=== PATIENT | female | born 1965 | race Caucasian/White ===

== ENCOUNTER → 2024-05-09 14:38 | Outpatient (REF) | payer OTHER, SELFPAY | LOC: WDC 14:38 | PROVIDERS: ATTENDING PHYSICIAN Nurse Practitioner Primary Care | DX: R00.2 Palpitations (principal); Z12.31 Encounter for screening mammogram for malignant neoplasm of breast | CPT/HCPCS: 77063; 77067; 93005 ==

== ENCOUNTER 2025-05-05 08:18 | Emergency (ER) | payer OTHER, SELFPAY ==
[2025-05-05 08:18] VITALS: BMI 24.4
[2025-05-05 08:24] VITALS: BP 140/73
--- NOTE | 2025-05-05 09:13 | ED.GENMED ---
History of Present Illness
<TANA Riggins - Last Filed: 05/05/25 14:51>
General
Chief Complaint: Chest Pain
Source: patient
Exam Limitations: none
Time Seen by Provider: 05/05/25 09:00
Nursing documentation reviewed up to this point in time: agreed with
History of Present Illness
History of Present Illness:
Patient is a 59-year-old female with past medical history of hyperlipidemia recently started statins this past weekend presents for evaluation. She started on Saturday 2 days ago with constant pressure in her back that radiates to her chest. She
reports this is not a pain but definitely feels like a pressure and is persistent/constant. She denies any injury. This does not feel like it is muscular to her. She has not taken anything for discomfort. She denies any recent cough or fever or
chills. She denies any abdominal pain nausea vomiting.
Patient reports father with significant cardiac issues
Patient is a non-smoker no oral estrogens no history of DVT PE. No clotting disorder.
Past History
<TANA Riggins - Last Filed: 05/05/25 14:51>
Past History
ED Past Medical History: None
ED Past Surgical History: None
Social History
Tobacco: Non-smoker
Alcohol: None
Drug: None
Family History
Family History: Negative Early CAD
Phy Exam
<TANA Riggins - Last Filed: 05/05/25 14:51>
General Physical Exam
General Presentation: no apparent distress
General age: appears stated age
General Skin: warm and dry
General Habitus: normal
General Mental: alert
General Hydration: appears well hydrated
Cardiovascular Exam
Cardiovascular Exam: regular rate/rhythm, no murmur and normal peripheral pulses
Pulmonary Exam
Pulmonary Exam: lungs clear and no respiratory distress
Neurological Exam
Neurological Exam: alert and oriented x3
Musculoskeletal Exam
Musculoskeletal Exam: full ROM
Skin Exam
Skin Exam: normal color and warm/dry
Psychiatric Exam
Psychiatric Exam: normal mood/affect
Scores
<TANA Riggins - Last Filed: 05/05/25 14:51>
Heart Score for Chest Pain Patients
STEMI patient?: Not applicable
Course
<TANA Riggins - Last Filed: 05/05/25 14:51>
Orders/Labs/Results
Orders:
Orders
05/05/25 08:27
Electrocardiogram (*1) Urgent
Reason for Study: Chest Pain
EKG- Treatment ONCE
05/05/25 09:11
IV Insert/Care/Rem.- Treatment PRN
0.9% Sodium Chloride 1000 ml [Nss] 1,000 ml IV BOLUS
05/05/25 09:12
CT Chest Angio W/wo Iv Contras Urgent
Comment:
Reason For Exam: back pain radiating to chest mild SOB
Cardiac Monitoring- Treatment ONCE
EKG- Treatment ONCE
05/05/25 09:23
Complete Blood Count/With Diff Urgent
Comprehensive Metabolic Panel Urgent
Lipase Urgent
Troponin I Urgent
05/05/25 10:41
US Abdomen Complete/Upper Urgent
Comment:
Reason For Exam: back pain chest pain + stones on ct
05/05/25 12:55
Urinalysis Reflex To Culture Urgent
Date Specimen was Collected: 05/05/25
Time Specimen was Collected: 12:53
Urine Microscopic Reflex Cult Urgent
Urine Culture Urgent
[facility] Source: U
Specimen Description:
Date Specimen was Collected: 05/05/25
Time Specimen was Collected: 12:53
05/05/25 13:23
Electrocardiogram (*1) Urgent
Reason for Study: Chest Pain
EKG- Treatment ONCE
05/05/25 13:30
Ketorolac [Toradol] 15 mg IV NOW STA
05/05/25 13:31
Troponin I Urgent
Abnormal Lab Results
05/05/25 05/05/25
09:23 12:55
WBC 3.8 L 10^3/uL
(4.8-10.8)
Absolute Lymphs (auto) 1.1 L 10^3/uL
(1.2-3.4)
Leukocyte Esterase Rfl 1+ A
(Negative)
Urine Bacteria (Reflex) Few A
(Negative)
Urine Albumin (Reflex) 1+ A
(Neg - Trace)
05/05/25 09:23
05/05/25 09:23
Vital Signs
Initial and Last Documented VS:
Initial Vital Signs
Temp Pulse Resp BP Pulse Ox
98.3 F 73 16 140/73 99
05/05/25 08:24 05/05/25 08:24 05/05/25 08:24 05/05/25 08:24 05/05/25 08:24
Last Documented Vital Signs
Temp Pulse Resp BP Pulse Ox
98.3 F 55 22 93/56 99
05/05/25 08:24 05/05/25 14:33 05/05/25 14:33 05/05/25 14:33 05/05/25 11:00
Academic Support Coordinator consulted with Physician
Academic Support Coordinator consulted with physician?: Yes
Name of Physician Consulted: Fernando
<Lopez King MD - Last Filed: 05/05/25 14:42>
Orders/Labs/Results
Orders:
Orders
05/05/25 08:27
Electrocardiogram (*1) Urgent
Reason for Study: Chest Pain
EKG- Treatment ONCE
05/05/25 09:11
IV Insert/Care/Rem.- Treatment PRN
0.9% Sodium Chloride 1000 ml [Nss] 1,000 ml IV BOLUS
05/05/25 09:12
CT Chest Angio W/wo Iv Contras Urgent
Comment:
Reason For Exam: back pain radiating to chest mild SOB
Cardiac Monitoring- Treatment ONCE
EKG- Treatment ONCE
05/05/25 09:23
Complete Blood Count/With Diff Urgent
Comprehensive Metabolic Panel Urgent
Lipase Urgent
Troponin I Urgent
05/05/25 10:41
US Abdomen Complete/Upper Urgent
Comment:
Reason For Exam: back pain chest pain + stones on ct
05/05/25 12:55
Urinalysis Reflex To Culture Urgent
Date Specimen was Collected: 05/05/25
Time Specimen was Collected: 12:53
Urine Microscopic Reflex Cult Urgent
Urine Culture Urgent
[facility] Source: U
Specimen Description:
Date Specimen was Collected: 05/05/25
Time Specimen was Collected: 12:53
05/05/25 13:23
Electrocardiogram (*1) Urgent
Reason for Study: Chest Pain
EKG- Treatment ONCE
05/05/25 13:30
Ketorolac [Toradol] 15 mg IV NOW STA
05/05/25 13:31
Troponin I Urgent
Abnormal Lab Results
05/05/25 05/05/25
09:23 12:55
WBC 3.8 L 10^3/uL
(4.8-10.8)
Absolute Lymphs (auto) 1.1 L 10^3/uL
(1.2-3.4)
Leukocyte Esterase Rfl 1+ A
(Negative)
Urine Bacteria (Reflex) Few A
(Negative)
Urine Albumin (Reflex) 1+ A
(Neg - Trace)
05/05/25 09:23
05/05/25 09:23
Vital Signs
Initial and Last Documented VS:
Initial Vital Signs
Temp Pulse Resp BP Pulse Ox
98.3 F 73 16 140/73 99
05/05/25 08:24 05/05/25 08:24 05/05/25 08:24 05/05/25 08:24 05/05/25 08:24
Last Documented Vital Signs
Temp Pulse Resp BP Pulse Ox
98.3 F 55 22 93/56 99
05/05/25 08:24 05/05/25 14:33 05/05/25 14:33 05/05/25 14:33 05/05/25 11:00
<TANA Riggins - Last Filed: 05/05/25 14:51>
MDM/Problems Addressed
Differential Diagnosis Includes:
Not limited to ACS, less likely dissection, PE, less likely cholecystitis less likely renal colic, muscular pain
MDM/Problems Addressed:
As documented patient is a 59-year-old female who presented to the ER for constant persistent pressure in her back which radiates to her chest since Saturday. She does have a history of high cholesterol no other medical history. Her father did have
cardiac history and stents. Pain is not made worse with movement she is not on oral estrogens she does not smoke no other DVT PE risk factors. She denies any UTI symptoms nausea vomiting fever chills cough. She is afebrile vital signs
unremarkable she is not hypoxic nontachypneic nontachycardic. CT angio chest negative for acute dissection aneurysm negative for PE. CAT scan does show cholelithiasis and therefore dedicated ultrasound was done which again shows cholelithiasis
however no gallbladder wall thickening or biliary dilatation no [place] sign normal LFTs. There is incidental mild right renal collecting system dilatation which could represent mild hydro. Urine negative for blood however. No acute cause of
patient's symptoms not likely cardiac as symptoms have been persistent for the past several days and patient's troponin is negative. All other blood work unremarkable. will recheck a second troponin and give Toradol and reassess. Patient is very
well-appearing and stable for discharge home will place on chest pain follow-up hotline as well as family doctor. Pt wishes to follow-up with CBC as her father used to follow with a group.
BP on the lower side however pt states her normal is 100/60
Chronic conditions affecting care:
Hyperlipidemia
<TANA Riggins - Last Filed: 05/05/25 14:51>
*Radiology
Radiology exam reviewed: radiology read reviewed
*Pulse Oximetry
SaO2: 99
Oxygen Mode of Delivery: Room air
Patient hypoxic: no
*EKG
Interpreted by ED Provider?: Yes
Heart Rate: 72
Rate: normal
Rhythm: sinus
Ischemia: other (repeat ekg unchanged )
*Critical Care Note
Total Time (30-74mins, 75-104mins- exclusive of procedures): Not Applicable
ED Attending Note
<TANA Riggins - Last Filed: 05/05/25 14:51>
-
Portions of this chart may have been created with voice recognition software.� Occasional wrong word or��sound alike� substitutions may have occurred due to the inherent limitations of voice recognition software.
<Lopez King MD - Last Filed: 05/05/25 14:42>
ED Attending Note
Patient seen and examined by attending physician: Yes
I performed the substantive portion of visit, reviewed & personally made and approve the management plan that is documented in note by myself or FERMIN.: Yes
ED Attending Note:
59-year-old female complaining of pressure in her upper back slightly to the right. Started 2 days ago. Nontraumatic. Radiates to the chest. No shortness of breath or nausea. No clear-cut exertional component although she states she notices it
more when she is up and about. No pleuritic pain. No history of same. Patient did start a statin the same day.
On exam patient is nontoxic in no distress. Lungs are clear and equal. Heart regular rate and rhythm no murmur. Abdomen is soft and nontender. No liver or spleen no rebound or guarding. Extremities are warm and dry. Nonfocal. Good distal
pulses and color.
EKG has nonspecific changes.
Impression is nontraumatic back pain rating to the chest. Highly doubt dissection but clearly needs to be worked out. CTA pending. Would be somewhat atypical for cardiac given the length of symptoms although does have moderate risk factors with
family history cholesterol. EKG has nonspecific changes. Await troponin. Would expect troponin to be positive with relatively consistent symptoms for 2 days. Gallbladder unlikely. She has no right upper quadrant tenderness. We are checking
LFTs and lipase. Possibly symptoms related to her statin although seems unusually localized for this.
1440.... Patient has been rechecked multiple times. She has remained very stable and nontoxic and in no distress. Her history has been reviewed multiple times and clearly it is a consistent with right upper para spinal pain medial to the scapula
on the right that has been there for days. It is nonpleuritic not truly exertional. She has no shortness of breath nausea diaphoresis or abdominal symptoms. She gets some chest tightness occasionally with this. But the major symptom is this
ongoing upper back pain. She has had 2 negative troponins and 2 stable EKGs with continuous pain for days. She has had a dissection study that was unremarkable. Her LFTs and labs are normal. Ultrasound shows gallstones but no findings to support
acute cholecystitis. She does have a mild right hydronephrosis and theoretically this could be a kidney stone but would be a very atypical position. Her symptoms are very high and medial for a kidney stone. She has no infectious symptoms so even
if this was a kidney stone management will be observation at this time. This was discussed at length with the patient. I see no reason to admit her or have any emergent cardiac referral. We will however arrange cardiac follow-up with her risk
factors
Discharge Plan
Departure
Patient Disposition: Home (Routine Discharge)
Date of Disposition: 05/05/25
Time of Disposition: 14:43
Patient with high blood pressure during this ER visit?: Yes
Condition: Fair
Covid-19: Not Applicable
Discharge Problem:
Chest pain
Instructions: Chest Pain CBC Follow Up
Referrals:
Giovanni Delvalle MD [Active, Cardiology]
Mando Rodriguez DO [Family Provider, Internal Medicine]
Activity Restrictions/Additional Instructions:
As discussed you are placed on the chest pain hotline. You should receive a phone call from the office in the next day however if you do not please call the office to schedule an appointment as soon as possible. Return if any worsening of symptoms.
Interventions
Interventions:
*Risk Screen - Suicide Last Done: 05/05/25 08:24
*General Assessment Last Done: 05/05/25 09:46
*Neglect/Abuse Screening Last Done: 05/05/25 08:24
*ED COVID-19 Vaccine History Last Done: 05/05/25 09:46
*ED Influenza Vaccine History Last Done: 05/05/25 09:46
ED- Cardiac Assessment Last Done: 05/05/25 09:46
Discharge Date and Time
Print Language: [place]
[2025-05-05] MEDS: NSS 1000 IV (09:24)
[2025-05-05 09:34] LABS: Hematocrit 37.9 % (37.0-47.0); Hemoglobin 12.8 g/dL (12.0-16.0); Mean Corp Hgb Conc. 33.8 g/dL (33.0-37.0); Mean Corpuscular Volume 89.0 fL (81.0-99.0); Nucleated Red Blood Cells % 0 %; Platelet Count 205 10^3/uL (130-400); Red Cell Dist. Width 12.4 % (11.5-14.5)
[2025-05-05 09:46] LABS: ALT (SGPT) 11 U/L (0-35); AST (SGOT) 26 U/L (14-36); Albumin 4.3 g/dl (3.5-5.0); Alkaline Phosphatase 60 U/L (38-126); Blood Urea Nitrogen 14 mg/dl (7-17); Calcium 9.7 mg/dl (8.4-10.2); Carbon Dioxide 30 mmol/L (22-30); Chloride 107 mmol/L (98-107); Estimated Creatinine Clearance 95 ml/min; Glucose 89 mg/dl (70-99); Lipase 86 U/L (23-300); Potassium 4.3 mmol/L (3.5-5.1); Sodium 140 mmol/L (135-145); Total Protein 6.9 g/dl (6.3-8.2); eGFR > 60.00
[2025-05-05 10:00] VITALS: BP 95/63
[2025-05-05 10:04] LABS: Troponin I < 0.012 ng/ml
[2025-05-05 11:00] VITALS: BP 111/64
[2025-05-05 13:24] LABS: Urine Character Clear (Clear)
[2025-05-05 13:30] VITALS: BP 96/53
[2025-05-05 13:30] LABS: Urine Red Blood Cell 0-2 /HPF (0-2); Urine Squamous Cell >30 /LPF (Few); Urine White Cell 0-2 /HPF (0-5)
[2025-05-05] MEDS: TORADOL 15 MG IV (13:44)
[2025-05-05 14:08] LABS: Troponin I < 0.012 ng/ml
[2025-05-05 14:33] VITALS: BP 93/56
== END 2025-05-05 15:02 | disposition home or self-care (01) ==
LOC: EMR 08:18
PROVIDERS: Nurse Practitioner; EMERGENCY PHYSICIAN Emergency Medicine; FAMILY PHYSICIAN Internal Medicine
DX: R07.9 Chest pain, unspecified (principal); K80.20 Calculus of gallbladder without cholecystitis without obstruction; N13.30 Unspecified hydronephrosis; E78.00 Pure hypercholesterolemia, unspecified; Z82.49 Family history of ischemic heart disease and other diseases of the circulatory system
CPT/HCPCS: 99284; 96374; 96361; 71275; 76700; 80053; 81003; 81015; 83690; 84484; 85025; 87086; 93005; Q9967

== ENCOUNTER → 2025-05-19 17:07 | Outpatient (REF) | payer OTHER, SELFPAY | LOC: WDC 17:07 | PROVIDERS: ATTENDING PHYSICIAN Obstetrics & Gynecology; FAMILY PHYSICIAN Internal Medicine | DX: Z12.31 Encounter for screening mammogram for malignant neoplasm of breast (principal) | CPT/HCPCS: 77063; 77067 ==

== ENCOUNTER → 2025-05-26 17:15 | Outpatient (REF) | payer OTHER, SELFPAY | LOC: RCS 17:15 | PROVIDERS: ATTENDING PHYSICIAN Internal Medicine Cardiovascular Disease; FAMILY PHYSICIAN Internal Medicine | DX: R07.2 Precordial pain (principal); R94.31 Abnormal electrocardiogram [ECG] [EKG]; R01.1 Cardiac murmur, unspecified | CPT/HCPCS: 93306 ==

== ENCOUNTER → 2025-06-02 07:16 | Outpatient (REF) | payer OTHER, SELFPAY | LOC: RCS 07:16 | PROVIDERS: ATTENDING PHYSICIAN Internal Medicine Cardiovascular Disease; FAMILY PHYSICIAN Internal Medicine | DX: R07.2 Precordial pain (principal); R94.31 Abnormal electrocardiogram [ECG] [EKG] | CPT/HCPCS: 78452; 93017; A9500 ==

== ENCOUNTER → 2025-06-08 13:23 | Outpatient (REF) | payer OTHER, SELFPAY | LOC: RAD 13:23 | PROVIDERS: ATTENDING PHYSICIAN Internal Medicine | DX: R10.13 Epigastric pain (principal) | CPT/HCPCS: 74177; Q9967 ==